=== PATIENT | male | born 1975 | race Caucasian/White ===

== ENCOUNTER 2016-09-27 10:34 | Emergency (ER) | payer OTHER ==
[2016-09-27 11:09] VITALS: TEMP 98.2
--- NOTE | 2016-09-27 11:19 | RAD ---
EXAM DESCRIPTION: Elbow,Left 3 Views CLINICAL HISTORY: 41 yearsMale, injury after fall, pain COMPARISON: None. IMPRESSION: 3 views of the left elbow demonstrate no evidence of acute fracture, dislocation, or destructive osseous lesion. Alignment appears maintained. There is no evidence of a joint effusion. Small enthesophyte at the triceps insertion. Electronically signed by: Db Ugalde MD 09/27/2016 11:18 AM CDT
--- NOTE | 2016-09-27 11:25 | ED.PDOC ---
History of Present Illness - General Chief Complaint: Upper Extremity Injury Stated Complaint: LEFT ELBOW INJURY POST FALL Time Seen by Provider: 09/27/16 11:20 Source: patient Exam Limitations: no limitations - History of Present Illness Initial Comments: Patient presents with left elbow pain after he fell out of the back of a pickup truck at work. The truck was not moving. The patient did not strike his head nor lose consciousness. His pain is on the lateral epicondyle of the humerus. The pain at the lateral epicondyle is non-radiating, constant, worse with extension, better with rest. No associated sx. No previous episodes. Timing/Duration: 1-3 hours Severity: moderate Improving Factors: rest Worsening Factors: movement Associated Symptoms: denies symptoms Allergies/Adverse Reactions: Allergies NO KNOWN ALLERGY Allergy (Verified 09/27/16 10:57) Review of Systems - Review of Systems Constitutional: States: no symptoms reported EENTM: States: no symptoms reported Respiratory: States: no symptoms reported Cardiology: States: no symptoms reported Gastrointestinal/Abdominal: States: no symptoms reported Genitourinary: States: no symptoms reported Musculoskeletal: States: see HPI Skin: States: no symptoms reported Neurological: States: no symptoms reported Endocrine: States: no symptoms reported Hematologic/Lymphatic: States: no symptoms reported Family Medical History - Family History Mother Family History: No Known Physical Exam - Physical Exam General Appearance: Alert Respiratory: lungs clear Cardiovascular/Chest: regular rate, rhythm Gastrointestinal/Abdominal: normal bowel sounds, non tender, soft Extremity: other - Patient cannot extend the left arm beyond a 160 degree angle at the antecubital fossa before pain prevents further extension. He can fully flex the left forearm against resistance. He can supinate and pronate the left arm against resistance. 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 He can rotate the left arm fully against resistance in all directsions. There are several superficial abrasions over the lateral elbow. Patient is up to date on his tetanus. Progress - Progress Progress: 09/27/16 11:44 Radiographs of the left elbow showed no fractures nor dislocations. COURTNEY bandage applied. Instructions for home care given. Departure - Departure Clinical Impression: Contusion of elbow Disposition: Discharge to Home or Self Care Condition: Good Departure Forms: ED Discharge - Pt. Copy, Patient Portal Self Enrollment Diet: resume usual diet Activity: increase activity as tolerated Additional Instructions: Ice to the painful area three times per day for three days then change to heat twice per day until healed. COURTNEY wrap for at least three days. Rest the elbow for three days and elevate it on a pillow at night. After three days, return to activity as tolerate. Ibuprofen as directed on the bottle for pain and swelling control.
[2016-09-27] MEDS ORDERED: NEOMYCIN-BACITRACIN-POLYMYXIN 0.9 GM UD TOP ONE (11:56)
[2016-09-27 12:11] VITALS: BP 136/87; O2SAT 96
== END 2016-09-27 12:05 | disposition home or self-care (01) ==
LOC: ER 10:34
DX: S50.02XA Contusion of left elbow, initial encounter (principal); W17.89XA Other fall from one level to another, initial encounter; Y99.0 Civilian activity done for income or pay

== ENCOUNTER 2017-11-18 20:04 | Emergency (ER) | payer OTHER ==
[2017-11-18 20:18] VITALS: TEMP 95.8; O2SAT 96
[2017-11-18] MEDS ORDERED: GLUCAGON INJ 1 MG VIAL IV ONE (20:31)
--- NOTE | 2017-11-18 20:44 | ED.PDOC ---
History of Present Illness - General Chief Complaint: ENT Problem Stated Complaint: feels like something is stuck in throat Time Seen by Provider: 11/18/17 20:21 Source: patient, family Exam Limitations: no limitations - History of Present Illness Initial Comments: ATE [employer]. SWALLOWED A BITE AND IT FEELS STUCK EVER SINCE. UNABLE TO SWALLOW HIS SALIVA. IF DRINKS WATER, IT COMES BACK UP. WORSE SUPINE. HAS VOMITED AND EMESIS EXTRUDED, YET IT STILL FEELS THOUGH FOOD IS STUCK, MORESO IN LOWER ESOPHAGUS THAN OROPHARYNX. NO DYSPNEA OR AIRWAY COMPROMISE. SIMILAR HAPPENED 2 MOS AGO AND 1 1/2 YRS AGO. GLUCAGON IV RESOLVED THE FOOD BOLUS. GI DID EGD BUT DIDN'T SEE ANY NEED TO DILATE. Timing/Duration: abrupt, this evening Severity: severe EENT Location: throat Prearrival Treatment: no prearrival treatment Improving Factors: nothing Worsening Factors: eating Associated Symptoms: denies symptoms Allergies/Adverse Reactions: Allergies NO KNOWN ALLERGY Allergy (Verified 11/18/17 20:18) Review of Systems - Review of Systems Constitutional: Denies: chills, fever EENTM: States: throat pain. Denies: ear pain, nose pain, mouth pain Respiratory: Denies: cough, short of breath Cardiology: Denies: chest pain, palpitations Gastrointestinal/Abdominal: Denies: abdominal pain, nausea Genitourinary: States: no symptoms reported Musculoskeletal: States: no symptoms reported Skin: States: no symptoms reported Neurological: States: no symptoms reported Endocrine: States: no symptoms reported Hematologic/Lymphatic: States: no symptoms reported All other Systems: Reviewed and Negative Past Medical History (General) - Patient Medical History Hx Seizures: No Hx Stroke: No Hx Dementia: No Hx Asthma: No Hx of COPD: No Hx Cardiac Disorders: No Hx Congestive Heart Failure: No Hx Pacemaker: No Hx Hypertension: No Hx Thyroid Disease: No Hx Diabetes: No Hx Gastroesophageal Reflux: No Hx Renal Disease: No Hx Cancer: No Hx of HIV: No Hx Hepatitis C: No Hx MRSA: No - Vaccination History Hx Tetanus, Diphtheria Vaccination: Yes Hx Influenza Vaccination: No Family Medical History - Family History Mother Family History: No Known Physical Exam - Physical Exam General Appearance: Alert, Well Nourished, Other - UNCOMFORTABLE Eye Exam: bilateral normal Ear Exam: bilateral ear: TM normal Nasal Exam: normal inspection Throat Exam: normal mouth inspection, pharynx normal Neck: non-tender, full range of motion, supple, normal inspection, trachea midline Cardiovascular/Respiratory: regular rate, rhythm, no M/R/G, no JVD, normal breath sounds, no respiratory distress Abdominal Exam: non-tender, no organomegaly Neurologic: alert, normal mood/affect Skin Exam: normal color, warm/dry Progress - Progress Progress: 11/18/17 20:49 I GAVE GLUCAGON 1 MG IV X 1. WILL WAIT 5-10 MIN. 11/18/17 21:21 obstructive dysphagia (food bolus) - RESOLVED COMPLETELY WITH GLUCAGON IV X 1. PT WAS THEN ABLE TO SWALLOW HIS SALIVA AND DRINK A GLASS OF WATER WITHOUT SX. Departure - Departure Clinical Impression: Odynophagia Disposition: Discharge to Home or Self Care Condition: Good Departure Forms: ED Discharge - Pt. Copy, Patient Portal Self Enrollment Instructions: DI for Esophageal Dysphagia Diet: resume usual diet Activity: increase activity as tolerated Referrals: Isaias Mancini MD [Primary Care Provider] - 1-2 Weeks Additional Instructions: Please be cautious to chew food thoroughly and drink plenty of water with meals. Please follow-up with the doctor who performed the previous upper endoscopy.
[2017-11-18 21:30] VITALS: BP 129/84
== END 2017-11-18 21:30 | disposition home or self-care (01) ==
LOC: ER 20:04
DX: R13.10 Dysphagia, unspecified (principal)